=== PATIENT | female | born 1950 | race Caucasian/White ===

== ENCOUNTER 2022-06-24 18:30 | Emergency (ER) | payer OTHER ==
[~2022-06-24] VITALS: Ht 170.2 cm; Wt 102.1 kg
[2022-06-24] MEDS ORDERED: LOSA25TA27 PO (19:57)
[2022-06-24] MEDS ORDERED: ATOR10TA PO (19:57)
--- NOTE | 2022-06-24 20:10 | NUR ---
Dr France at bedside MSE in progress
[2022-06-24] MEDS ORDERED: IV NORMAL SALINE 500 ML BAG IV ONE (20:15)
--- NOTE | 2022-06-24 20:35 | NUR ---
CHEST X RAY DONE AT BEDSIDE.
--- NOTE | 2022-06-24 20:39 | NUR ---
Patient is a/ox4, NAD noted.
--- NOTE | 2022-06-24 20:40 | NUR ---
Patient's daughter at bedside
[2022-06-24 20:41] LABS: HEMATOCRIT 30.5 % (31.2-41.9); MEAN CORPUSCULAR HEMOGLOBIN 29.8 uug (24.7-32.8); MEAN CORPUSCULAR VOLUME 86.6 fL (75.5-95.3); PLATELET COUNT (AUTO) 294 K/uL (179-408)
--- NOTE | 2022-06-24 20:41 | NUR ---
Patient's daughter at bedside
--- NOTE | 2022-06-24 20:47 | NUR ---
Patient taken to CT by maria smith in stable condition
[2022-06-24 20:55] LABS: CARBON DIOXIDE 29 mmol/L (21-32); CHLORIDE 101 mmol/L (98-107); CREATININE 1.4 mg/dL (0.6-1.3); GLUCOSE 96 mg/dL (74-106); POTASSIUM 3.8 mmol/L (3.5-5.1); UREA NITROGEN, BLOOD 44 mg/dL (7-18)
[2022-06-24 21:02] LABS: BILIRUBIN,DIRECT 0.2 mg/dL (0.0-0.2); BILIRUBIN,TOTAL 0.7 mg/dL (0.2-1.0); TOTAL PROTEIN, SERUM 6.6 g/dL (6.4-8.2)
[2022-06-24] MEDS ORDERED: ONDA4TAB5 PO (22:09)
--- NOTE | 2022-06-24 22:16 | NUR ---
Patient discharged to home in stable condition. Written and verbal after care instructions given. Patient and patient's daughter verbalizes understanding of instructions. Stressed follow up or return to ER for worsening s/s. Patient is a/ox4, NAD noted. patient accompampanied by her daughter
[2022-06-24 22:22] VITALS: BP 130/64
== END 2022-06-24 22:20 | disposition home or self-care (01) ==
LOC: ER 18:34
DX: F45.0 Somatization disorder (principal); E78.5 Hyperlipidemia, unspecified; I10 Essential (primary) hypertension; Z79.899 Other long term (current) drug therapy; Z20.822 Contact with and (suspected) exposure to COVID-19
CPT/HCPCS: 99285; 96360; 70450; 71045; 87426; 80076; 80048; 85025; 84484; 36415; 93005; J7040; A4663